=== PATIENT | female | born 1970 | race Caucasian/White ===

== ENCOUNTER 2019-08-28 08:12 | Emergency (ER) | payer BC, SELFPAY ==
--- NOTE | 2019-08-28 09:04 | ED.GENADULT ---
HPI - General Adult General Chief complaint: Upper Respiratory Infection Stated complaint: Cold symptoms Time Seen by Provider: 08/28/19 09:22 Source: patient Mode of arrival: ambulatory Limitations: no limitations History of Present Illness HPI narrative: 49-year-old female patient [facility] with complaints of cold symptoms for the past week. Patient states that she has had body aches, chills, runny nose, stuffy nose and a slight cough. Denies any chest pain or shortness of breath. Denies any abdominal pain, nausea, vomiting or diarrhea. Patient denies getting a flu shot this year. Patient states she has been taking Tylenol and ibuprofen for her symptoms. Related Data Home Medications Medication Instructions Recorded Confirmed alprazolam 1 mg PO TID 08/28/19 08/28/19 fluoxetine [Prozac] 40 mg PO DAILY 08/28/19 08/28/19 zolpidem [Ambien] 10 mg PO HS 08/28/19 08/28/19 Allergies Allergy/AdvReac Type Severity Reaction Status Date / Time No Known Allergies Allergy Verified 08/28/19 09:13 Review of Systems Review of Systems: Narrative: CONSTITUTIONAL: Positive fever, chills, body aches and sweats. EYES: Denies visual changes, redness, or discharge. ENT: Positive rhinorrhea, congestion, sore throat, denies otalgia. CARDIOVASCULAR: Denies chest pain, palpitations, or edema. RESPIRATORY: Positive nonproductive cough, denies dyspnea. GASTROINTESTINAL: Denies abdominal pain, nausea, vomiting, or diarrhea. GENITOURINARY: Denies dysuria or hematuria. SKIN: Denies rash or itching. MUSCULOSKELETAL: Denies back pain, joint pain, or myalgia. NEUROLOGIC: Denies headache, numbness, or weakness. PSYCHIATRIC: Denies anxiety or depression. PMFSH Comments At the time of my signature I agree with nursing past medical history, surgical, social, and family history. There is no relevant family history pertinent to the presenting complaint. Exam Narrative: Exam Narrative: GENERAL: Well-appearing, well-nourished, and in no acute distress. HEAD: Normocephalic, atraumatic. No tenderness noted to frontal and maxillary sinuses on palpation. EYES: PERRLA and EOMI. ENT: Nares with erythema and edema noted bilaterally, no rhinorrhea or epistaxis. Mucous membranes moist. Posterior pharynx with no erythema, tonsillar edema, exudates or lesions present. Bilateral TMs are clear with no erythema or foreign bodies in the canal. NECK: Supple. No lymphadenopathy CHEST: Clear to auscultation. No respiratory distress. HEART: Regular rate and rhythm. No murmur heard. Normal peripheral pulses. ABDOMEN: Soft, nontender, nondistended, normal active bowel sounds. EXTREMITIES: Normal range of motion. No edema. SKIN: Warm, dry, no rash. NEURO: No focal deficits. Alert and oriented x3. Course Vital Signs Vital signs: Vital Signs Temperature 38.1 C H 08/28/19 09:06 Pulse Rate 85 08/28/19 09:06 Respiratory Rate 16 08/28/19 09:06 Blood Pressure 137/87 08/28/19 09:06 Pulse Oximetry 100 08/28/19 09:06 Temperature 38.1 C H 08/28/19 09:06 Pulse Rate 85 08/28/19 09:06 Respiratory Rate 16 08/28/19 09:06 Blood Pressure 137/87 08/28/19 09:06 Pulse Oximetry 100 08/28/19 09:06 Vital signs reviewed. The patient has been informed that they may have pre-hypertension or Hypertension based on a BP reading in the department. I recommend that the patient call the primary care provider listed on their discharge instructions or a physician of their choice this week to arrange follow up for further evaluation of possible pre-hypertension or Hypertension Medical Decision Making Differential Diagnosis Differential Diagnosis: Differential diagnosis: Allergic rhinitis, chronic sinusitis, tonsillitis, acute sinusitis, infectious mononucleosis, seasonal influenza, pertussis, diphtheria, meningococcal disease, viral syndrome, viral bronchitis, RSV. Notify patient that she is positive today for influenza A. Discussed with ave
[2019-08-28 09:06] VITALS: BP 137/87; PULSE 85; RESP 16; TEMP 38.1; O2SAT 100
== END 2019-08-28 09:36 | disposition home or self-care (01) ==
PROVIDERS: Emergency Provider Nurse Practitioner Family
DX: J10.1 Influenza due to other identified influenza virus with other respiratory manifestations (principal)
CPT/HCPCS: 87081; 87804; 87880; 99213; G0463

== ENCOUNTER 2020-02-27 11:31 | Emergency (ER) | payer BC, SELFPAY ==
--- NOTE | ~2020-02-27 | XR_ITS ---
EXAMINATION: XR foot LT min 3V EXAM DATE: 02/27/2020 11:58 INDICATION: Initial encounter following injury, with pain of the left foot. Dropped dresser on it. TECHNIQUE: Left foot dorsoplantar, lateral and oblique projections obtained and reviewed. There is n o prior study for comparison. FINDINGS: Left metatarsal bones unremarkable. There are no acute fractures or dislocations identifi ed. There is no subcutaneous gas. There is soft tissue swelling over the foot dorsally. There are no radiopaque foreign bodies. IMPRESSION: No acute osseous findings. Reviewed, dictated and finalized at location A. IMPRESSION: No acute osseous findings.
--- NOTE | 2020-02-27 11:48 | ED.LOWEXIN ---
HPI - Extremity Injury (Lower) General Chief Complaint: Extremity Injury, Lower Stated Complaint: Extremity injury, lowe Source: patient and RN notes reviewed Mode of arrival: ambulatory Limitations: no limitations History of Present Illness HPI Narrative: The patient, on several mood meds, presents with foot injury. Patient states about a half a week ago she dropped a dresser drawer upon the extensor aspect of her foot. She complains of mild swelling, edema there that is worse with motion, better at rest. No bleeding, deformity Related Data Home Medications Medication Instructions Recorded Confirmed alprazolam 1 mg PO TID 08/28/19 08/28/19 fluoxetine [Prozac] 40 mg PO DAILY 08/28/19 08/28/19 zolpidem [Ambien] 10 mg PO HS 08/28/19 08/28/19 sucralfate 02/27/20 Allergies Allergy/AdvReac Type Severity Reaction Status Date / Time No Known Allergies Allergy Verified 08/28/19 09:13 Review of Systems Review of Systems: Narrative: General/Constitutional: No weight loss,fever Eyes: N0: Redness,discharge Ears/Nose/Throat: No: Epistaxis,ear discharge Respiratory: Denies: Hemoptysis Gastrointestinal: No Vomiting, Bleeding-rectal Skin: No Lumps, eruption Neurologic: No Focal Weakness,Sz Hematologic: Denies: Petechiae/Purpura Psychiatric: No: Suicida ideationl All Other Systems: Reviewed and Negative PMFSH Comments At time of signature, agree with nursing past medical, surgical, social and family history. There is no relevant family history pertinent to the presenting complaint Exam Narrative: Exam Narrative: General Appearance: Well appearing, Well nourished, connjunctiva clear Mouth/Throat: Normal appearing, Normal lips: Supple Respiratory: Airway patent, No respiratory distress Musculoskeletal: Normal strength (mostly intact, limited flexion/extension by pain), Tenderness ( extensor metatarsals, with mild decreased ROM), Swelling extensor , Other (no anterior drawer, no collateral laxity, no Achilles tenderness, no fifth MT tenderness) Skin: Warm, Dry, Normal color Neurological: A&O x3, Speech clear, Normal affect Course Course Emergency Course: Films visualized, interpreted by radiologist, agree, normal see report Vital Signs Vital signs: Vital Signs Temperature 96.6 F L 02/27/20 12:01 Pulse Rate 63 02/27/20 12:01 Respiratory Rate 18 02/27/20 12:01 Blood Pressure 100/57 L 02/27/20 12:01 Pulse Oximetry 100 02/27/20 12:01 Temperature 96.6 F L 02/27/20 12:01 Pulse Rate 63 02/27/20 12:01 Respiratory Rate 18 02/27/20 12:01 Blood Pressure 100/57 L 02/27/20 12:01 Pulse Oximetry 100 02/27/20 12:01 Discharge Plan Discharge Clinical Impression: Contusion of foot, left Qualifiers: Encounter type: initial encounter Qualified Code(s): S90.32XA - Contusion of left foot, initial encounter Patient Disposition: Home, Self-Care Condition: Stable Instructions: Contusion in Adults (ED) Prescriptions: New acetaminophen-codeine 300-30 mg tablet 1 tablet PO HS PRN (Reason: pain) Qty: 10 RF: 0 No Action fluoxetine [Prozac] 40 mg Capsule 40 mg PO DAILY RF: 0 alprazolam 1 mg Tablet 1 mg PO TID RF: 0 zolpidem [Ambien] 10 mg Tablet 10 mg PO HS RF: 0 sucralfate 1 gram tablet RF: 0 Interventions: Discharge Disposition Last Done: 02/27/20 12:22 Follow-up/Referrals: PHYSICIAN NOT ON STAFF,NONSTAFF [Primary Care Provider] - Discharge Date/Time: 02/27/20 12:19
[2020-02-27 12:01] VITALS: BP 100/57; PULSE 63; RESP 18; TEMP 35.9; O2SAT 100
== END 2020-02-27 12:19 | disposition home or self-care (01) ==
PROVIDERS: Emergency Provider Emergency Medicine
DX: S90.32XA Contusion of left foot, initial encounter (principal); W20.8XXA Other cause of strike by thrown, projected or falling object, initial encounter; Z98.84 Bariatric surgery status; F41.9 Anxiety disorder, unspecified; F32.9 Major depressive disorder, single episode, unspecified; Z96.651 Presence of right artificial knee joint
CPT/HCPCS: 73630; 99213; G0463

== ENCOUNTER 2020-06-11 08:25 | Emergency (ER) | payer BC, SELFPAY ==
--- NOTE | 2020-06-11 08:39 | ED.URI ---
HPI - URI/Sore Throat General Chief Complaint: Skin/Abscess/Foreign Body Stated Complaint: Ear pain/rash Time Seen by Provider: 06/11/20 08:39 Source: patient and RN notes reviewed History of Present Illness HPI Narrative: Patient is a 50-year-old female who presents the urgent care with complaints of bilateral ear pain, postnasal drainage, intermittent sore throat, and a rash to the right foot. Patient states that she has had intermittent breakouts of dry skin and rash-like lesions to the right side of her body off and on since February. Patient states that the right foot rash started yesterday. Patient states she believes the rash is from having insulation explode throughout her house . Patient states every time she starts to clean an area in the home, she breaks out in the rash. Patient states she even has blisters in her ears. 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 Patient has been using multiple medicated and [id number]-[id number] creams such as Cearve, triamcinolone, mupirocin, hydrocortisone without improvement. Patient states she does use 1 vzin-her-utcyciw lotion that does seem to help the areas but then they return. Patient denies any itch or pain. States that she does have autoimmune disorder and has had issues with rashes in the past. Denies of any cough, shortness of breath, fever, nausea, vomiting. States that she does not leave her home and denies of any known exposure to Covid or strep. States that her boys that live with her have also not been sick recently. No other acute complaints. No acute distress noted. Patient aware of the plan of care. Some parts of this dictation were generated by voice recognition software and may contain typographical and/or grammatical inaccuracies. Related Data Home Medications Medication Instructions Recorded Confirmed alprazolam 1 mg PO TID 08/28/19 06/11/20 fluoxetine [Prozac] 40 mg PO DAILY 08/28/19 06/11/20 zolpidem [Ambien] 10 mg PO HS 08/28/19 06/11/20 Allergies Allergy/AdvReac Type Severity Reaction Status Date / Time No Known Allergies Allergy Verified 06/11/20 09:01 Review of Systems Review of Systems: Narrative: CONSTITUTIONAL: Denies fever, chills, or sweats. EYES: Denies visual changes, redness, or discharge. ENT: Reports of intermittent sore throat and postnasal drainage CARDIOVASCULAR: Denies chest pain, palpitations, or edema. RESPIRATORY: Denies cough or dyspnea. GASTROINTESTINAL: Denies abdominal pain, nausea, vomiting, or diarrhea. GENITOURINARY: Denies dysuria or hematuria. SKIN: Reports of an intermittent rash to the right shoulder since February as well as a new rash to the right foot MUSCULOSKELETAL: Denies back pain, joint pain, or myalgia. NEUROLOGIC: Denies headache, numbness, or weakness. All other systems reviewed are negative, except as documented in HPI. PMFSH Comments At the time of my signature, I reviewed and agree with the nursing past medical, surgical, social, and family history. There is no relevant family history pertinent to the patient complaint. Exam Narrative: Exam Narrative: GENERAL: This is a well-nourished, well-developed patient, in no apparent distress. HEAD: normocephalic, atraumatic. EYES: PERRL. Sclera clear/white. Vision is grossly intact. EARS: External ears normal, auditory canals clear and without drainage, TMs normal without perforation. Hearing grossly intact. NOSE: External nose normal with no obvious nasal discharge, nares without redness, no rhinorrhea. THROAT: Mucous membranes moist, posterior pharynx clear. Mild postnasal drainage NECK: Neck supple SKIN: Dry patchy lesions to the right shoulder/right upper extremity. Dry skin noted to the tragus of the right ear. Rough petechial rash to the dorsal aspect of the right foot NEURO: awake, alert, and oriented to person, place and time. There were no obvious focal neurologic abnormalities. EXTREMITIES: No
[2020-06-11 08:40] VITALS: BP 110/80; PULSE 92; RESP 20; TEMP 35.8; O2SAT 100
== END 2020-06-11 09:29 | disposition home or self-care (01) ==
PROVIDERS: Emergency Provider Nurse Practitioner Family
DX: L30.9 Dermatitis, unspecified (principal); H92.03 Otalgia, bilateral; J02.9 Acute pharyngitis, unspecified
CPT/HCPCS: 87081; 87880; 99213; G0463

== ENCOUNTER 2020-09-29 13:55 | Emergency (ER) | payer BC, SELFPAY ==
[2020-09-29 14:18] VITALS: BP 132/72; PULSE 97; RESP 20; TEMP 36.5; O2SAT 96
[2020-09-29 14:46] VITALS: BP 132/72; PULSE 97; RESP 20; TEMP 36.5; O2SAT 96
--- NOTE | 2020-09-29 14:59 | ED.EAR ---
HPI - Ear Problem General Chief complaint: Ear Stated complaint: Swollen Ear Source: patient and RN notes reviewed Mode of arrival: ambulatory Limitations: no limitations History of Present Illness HPI Narrative: 50 year old female who presents to [facility] care with complaints of 1 day history of pain to her left ear with swelling to the outer ear, behind her ear, and inner canal with pain below her ear. Patient states that she has also headache and discomfort in the eft side of her throat. Patient states that initially her ear was dry and crusty and she has been applying hydrocortisone to her ear, taking Tylenol for discomfort and has applied heat to her ear for comfort measures. Patient denies any know fever,chills, or sweats, states popping sensation to her ear, denies any pain over mastoid area behind her left ear. MD Complaint: ear pain and other (swelling of entire ear and behind her ear) Location: left ear Duration: constant Severity: severe Relieving factors: nothing Exacerbating factors: nothing Discharge from ear: Reports no and yes - clear Associated symptoms ear: external ear tenderness and ear swelling Treatment prior to arrival: oral analgesic and other (hydrocortisone ointment and heat) Related Data Home Medications Medication Instructions Recorded Confirmed alprazolam 1 mg PO TID 08/28/19 09/29/20 fluoxetine [Prozac] 40 mg PO DAILY 08/28/19 09/29/20 zolpidem [Ambien] 10 mg PO HS 08/28/19 09/29/20 aripiprazole 5 mg PO BID 09/29/20 09/29/20 Allergies Allergy/AdvReac Type Severity Reaction Status Date / Time No Known Allergies Allergy Verified 06/11/20 09:01 Review of Systems Review of Systems: Narrative: CONSTITUTIONAL: Denies known fever, chills, or sweats. EYES: Denies visual changes, redness, or discharge. ENT: Denies rhinorrhea, congestion, positive for sore throat left side, left ear otalgia. CARDIOVASCULAR: Denies chest pain, palpitations, or edema. RESPIRATORY: Denies cough or dyspnea. GASTROINTESTINAL: Denies abdominal pain, nausea, vomiting, or diarrhea. GENITOURINARY: Denies dysuria or hematuria. SKIN: Denies rash or itching. MUSCULOSKELETAL: Denies back pain, joint pain, or myalgia. NEUROLOGIC:Positive headache,no numbness, or weakness. PSYCHIATRIC: Positive anxiety or depression. All systems reviewed & are unremarkable except as noted in HPI and below PMFSH Past Medical History Medical History (Updated 10/04/20 @ 13:42 by Roxi Pappas NP) ADD (attention deficit disorder) Anemia Anxiety and depression Rheumatoid arthritis Surgical History Surgical History (Updated 10/04/20 @ 13:28 by Roxi Pappas NP) Gastric bypass status for obesity H/O tubal ligation History of cholecystectomy History of endometrial ablation History of total right knee replacement (TKR) Hx of appendectomy Family History Family History (Updated 10/04/20 @ 13:30 by Roxi Pappas NP) Mother Breast cancer Father Hypertension Diabetes mellitus Grandparent Heart disease Social History Social History (Updated 10/04/20 @ 13:30 by Roxi Pappas NP) Smoking status: Never smoker Alcohol intake: never Substance use: never Living arrangements: with family Gender identity (if verbalized by the patient): Female Comments At time of signature, agree with nursing past medical, surgical, social and family history. There is no relevant family history pertinent to the presenting complaint Exam Narrative: Exam Narrative: GENERAL: Well-appearing, well-nourished, and in mild acute distress. HEAD: Normocephalic, atraumatic. EYES: PERRLA and EOMI. ENT: Nares clear, no rhinorrhea or epistaxis. Mucous membranes moist.Right TM normal with good light reflex, Left TM normal, canal is red and excoriated and swollen, with outer ear red and swollen with some redness and swelling behind her left ear, no tenderness or heat over mastoid area, small lesion noted inside inner ear canal NECK: Supple.no
== END 2020-09-29 15:30 | disposition home or self-care (01) ==
PROVIDERS: Emergency Provider Registered Nurse
DX: H60.502 Unspecified acute noninfective otitis externa, left ear (principal); H61.892 Other specified disorders of left external ear; F41.9 Anxiety disorder, unspecified; F32.9 Major depressive disorder, single episode, unspecified; M06.9 Rheumatoid arthritis, unspecified
CPT/HCPCS: 87081; 87880; 99213; G0463

== ENCOUNTER 2024-02-19 11:21 | Emergency (ER) | payer BC, SELFPAY ==
--- NOTE | ~2024-02-19 | XR_ITS ---
EXAMINATION: XR foot LT min 3V DATE: 02/19/2024 11:50 INDICATION: Plantar arch pain at the left foot TECHNIQUE: Dorsoplantar, two oblique and lateral views of the left foot were obtained. COMPARISON: None. FINDINGS: Alignment is normal. No fracture. Joint spaces are normal. Small Achilles and plantar calcaneal spurs . Soft tissues are unremarkable. IMPRESSION: 1. Small Achilles and plantar calcaneal spurs. No acute osseous abnormality. Reviewed, dictated and finalized at location A.
[2024-02-19 11:28] VITALS: BP 127/84; PULSE 88; RESP 16; TEMP 37.2; O2SAT 100
--- NOTE | 2024-02-19 11:44 | ED.GENADULT ---
HPI - General Adult General Chief complaint: Extremity Injury, Lower Stated complaint: Left Foot Pain Source: patient Mode of arrival: ambulatory Limitations: no limitations History of Present Illness HPI narrative: Patient presents for evaluation of left foot pain. Symptom onset 1 month ago. She indicates she pushed a footstool underneath a garage door with her left foot prior to the time of pain onset. She denies any other precipitating injuries. Pain is constant, without numerical rating, or descriptive quality. Weight-bearing and walking make her symptoms worse. She has underlying osteoarthritis and rheumatoid arthritis. She tried taking ibuprofen for symptoms. Related Data Home Medications Medication Instructions Recorded Confirmed alprazolam 1 mg tablet 1 mg PO TID 08/28/19 09/29/20 fluoxetine 40 mg capsule (Prozac) 40 mg PO DAILY 08/28/19 09/29/20 aripiprazole 5 mg tablet 5 mg PO BID 09/29/20 09/29/20 bupropion HCl 150 mg 24 hr tablet, mg PO 02/19/24 extended release omeprazole 20 mg capsule,delayed mg 02/19/24 02/19/24 release Allergies Allergy/AdvReac Type Severity Reaction Status Date / Time No Known Allergies Allergy Verified 02/19/24 11:26 Review of Systems Review of Systems: CONSTITUTIONAL: Denies fever, chills, or sweats. EYES: Denies visual changes, redness, or discharge. ENT: Denies rhinorrhea, congestion, sore throat, or otalgia. CARDIOVASCULAR: Denies chest pain, palpitations, or edema. RESPIRATORY: Denies cough or dyspnea. GASTROINTESTINAL: Denies abdominal pain, nausea, vomiting, or diarrhea. GENITOURINARY: Denies dysuria or hematuria. SKIN: Denies rash or itching. MUSCULOSKELETAL: Reports left foot pain NEUROLOGIC: Denies headache, numbness, dizziness, or weakness. PSYCHIATRIC: Denies anxiety or depression. [facility] Past Medical History Medical History ADD (attention deficit disorder) Anemia Anxiety and depression Rheumatoid arthritis Surgical History Surgical History Gastric bypass status for obesity H/O tubal ligation History of cholecystectomy History of endometrial ablation History of total right knee replacement (TKR) Hx of appendectomy Family History Family History Mother Breast cancer Father Hypertension Diabetes mellitus Grandparent Heart disease Social History Social History Smoking status: Never smoker Alcohol intake: never Substance use: never Living arrangements: with family Gender identity (if verbalized by the patient): Female Exam Narrative: GENERAL: Well-appearing, well-nourished, and in no acute distress. HEAD: Normocephalic, atraumatic. EYES: PERRLA and EOMI. ENT: Nares clear, no rhinorrhea or epistaxis. Mucous membranes moist. Oropharynx without tonsillar hypertrophy exudate or other lesions. Bilateral TMs pearly virk nonbulging NECK: Supple. No adenopathy or masses. No carotid bruits or JVD CHEST: Clear to auscultation. No respiratory distress. No wheezes rales or rhonchi HEART: Regular rate and rhythm. No murmur heard. Normal peripheral pulses. ABDOMEN: Soft, nontender, nondistended, normal active bowel sounds. EXTREMITIES: Normal range of motion. No edema. There is tenderness in the dorsal aspect of the left foot as well as in the arch of the left foot. SKIN: Warm, dry, no rash. NEURO: No focal deficits. Alert and oriented x3. PSYCH: Normal mood and affect. Course Course Emergency Course: This is a 53-year-old female who presented for evaluation of left foot pain. X-ray showed bone spurs. Will DC with ibuprofen and tramadol. Follow-up with primary provider. Go to the ER for worsening symptoms. Patient in agreement plan of care. Level of Care: Express Care Visit Vital S
== END 2024-02-19 12:40 | disposition home or self-care (01) ==
PROVIDERS: Emergency Provider Nurse Practitioner
DX: M77.30 Calcaneal spur, unspecified foot (principal); F41.9 Anxiety disorder, unspecified; F32.A Depression, unspecified; M19.90 Unspecified osteoarthritis, unspecified site; M06.9 Rheumatoid arthritis, unspecified; Z98.84 Bariatric surgery status; E66.9 Obesity, unspecified; Z68.33 Body mass index [BMI] 33.0-33.9, adult; Z96.651 Presence of right artificial knee joint
CPT/HCPCS: 73630; 99213; G0463

== ENCOUNTER 2024-04-03 17:32 | Emergency (ER) | payer BC, SELFPAY ==
[2024-04-03 17:38] VITALS: BP 141/81; PULSE 92; RESP 20; TEMP 36.8; O2SAT 100
--- NOTE | 2024-04-03 17:52 | ED.LOWEXIN ---
HPI - Extremity Injury (Lower) General Chief Complaint: Extremity Injury, Lower Stated Complaint: Left foot &ankle swelling/pain Time Seen by Provider: 04/03/24 17:52 Source: patient, RN notes reviewed and old records reviewed Mode of arrival: ambulatory Limitations: no limitations History of Present Illness HPI Narrative: 53-year-old female to Express Care with complaint of left lower leg and ankle swelling and pain for several weeks. Patient reports she was seen here in February and diagnosed with a heel spur in her left foot. Patient reports increasing discomfort since that visit to left lower leg and ankle. The patient denies difficulty ambulating, numbness, tingling, allergies, pertinent medical history. Patient resting comfortably in exam room in no acute distress. Respirations even and nonlabored. Related Data Home Medications Medication Instructions Recorded Confirmed fluoxetine 40 mg capsule (Prozac) 40 mg PO DAILY 08/28/19 04/03/24 bupropion HCl 150 mg 24 hr tablet, 150 mg PO DAILY 02/19/24 04/03/24 extended release omeprazole 20 mg capsule,delayed 20 mg PO DAILY 02/19/24 04/03/24 release alprazolam 0.5 mg tablet 0.5 mg PO BID 04/03/24 04/03/24 aripiprazole 30 mg tablet 30 mg PO DAILY 04/03/24 04/03/24 semaglutide (weight loss) 0.25 0.25 mg subcut WEEKLY 04/03/24 04/03/24 mg/0.5 mL subcutaneous pen injector (Wegovy) Allergies Allergy/AdvReac Type Severity Reaction Status Date / Time No Known Allergies Allergy Verified 04/03/24 18:01 Review of Systems Review of Systems: All systems reviewed & are unremarkable except as noted in HPI and below Constitutional: Constitutional: Reports no additional constitutional complaints Eyes: Eyes: Reports no additional eye complaints ENT: Reports system reviewed and no additional complaints, except as documented Cardiovascular: Cardiovascular: Reports no additional cardiovascular complaints, Denies chest pain and Denies dyspnea Respiratory: Respiratory: Reports no additional respiratory complaints, Denies cough and Denies dyspnea Musculoskeletal: Musculoskeletal: Reports as per HPI, Reports arthralgias, Reports joint swelling, Denies numbness and Denies radiating pain into limb Neurologic: Reports system reviewed and no additional complaints, except as documented Psychiatric: Psychiatric: Reports no additional psychiatric complaints PMFSH Past Medical History Medical History ADD (attention deficit disorder) Anemia Anxiety and depression Rheumatoid arthritis Surgical History Surgical History Gastric bypass status for obesity H/O tubal ligation History of cholecystectomy History of endometrial ablation History of total right knee replacement (TKR) Hx of appendectomy Family History Family History Mother Breast cancer Father Hypertension Diabetes mellitus Grandparent Heart disease Social History Social History Smoking status: Never smoker Alcohol intake: never Substance use: never Living arrangements: with family Gender identity (if verbalized by the patient): Female Comments At the time of my signature, I reviewed and agree with the nursing past medical, surgical, social, and family history. There is no relevant family history pertinent to the patient complaint. Exam Const: General: cooperative, comfortable, no acute distress, alert, awake, anxious and well nourished Nutritional Appearance: well nourished Orientation/consciousness: patient oriented x3 Limitations: no limitations HENMT: Head: normal to inspection Ears: external ears normal Face/Nose/Sinus: Normal external nose present, Normal nares present, normal facial exam, No erythema and No edema Face and sinus: normal facial exa
== END 2024-04-03 18:10 | disposition short-term general hospital (02) ==
LOC: EXPBETH 17:35
PROVIDERS: Emergency Provider Nurse Practitioner Family
DX: M25.572 Pain in left ankle and joints of left foot (principal); M79.662 Pain in left lower leg; I99.8 Other disorder of circulatory system; F41.9 Anxiety disorder, unspecified; F32.A Depression, unspecified; M06.9 Rheumatoid arthritis, unspecified; Z96.651 Presence of right artificial knee joint; E66.9 Obesity, unspecified; Z68.33 Body mass index [BMI] 33.0-33.9, adult; Z98.84 Bariatric surgery status
CPT/HCPCS: 99212; G0463